=== PATIENT | male | born 1970 | race African-American/Black ===

== ENCOUNTER 2020-12-13 15:29 | Outpatient (CLI) | payer OTHER ==
[~2020-12-13 15:29] MED LIST: Iopamidol 370 76% 100 ML VIAL ONE
== END 2020-12-13 15:30 | disposition home or self-care (01) ==
LOC: BICCT 15:29
PROVIDERS: ATTEND Family Medicine
DX: R16.0 Hepatomegaly, not elsewhere classified (principal); R91.8 Other nonspecific abnormal finding of lung field; K76.89 Other specified diseases of liver
CPT/HCPCS: 74170; Q9967